=== PATIENT | female | born 1985 | race Caucasian/White ===

== ENCOUNTER 2019-12-02 07:38 | Inpatient (IN) ==
[2019-12-02] MEDS ORDERED: OXYTOCIN 30 UNITS/500 ML BAG IV PRN ×5 (08:16→18:00)
[2019-12-02] MEDS ORDERED: PENICILLIN G POTASSIUM 6 MU in DEXTROSE 5% 250 ML IV STA (08:19)
[2019-12-02] MEDS ORDERED: LACTATED RINGER'S 1,000 ML IV PRN (08:19)
[2019-12-02 08:38] LABS: Hematocrit (blood only) 40.7 % (37-47); Hemoglobin 13.5 g/dL (12.0-16.0); Mean Corpuscular Hemoglobin 30.5 pg (25-34); Mean Corpuscular Volume 92.1 fL (80-100); Mean Platelet Volume 11.6 fL (7.4-10.4); Platelet Count 162 K/uL (130-400); RDW Coefficient of Variation 12.9 % (11.5-14.5); RDW Standard Deviation 43.2 fL (36.4-46.3); Red Blood Count 4.42 M/uL (4.2-5.4); White Blood Count 9.71 K/uL (4.8-10.8)
[2019-12-02 08:39] LABS: Mean Corpuscular Hgb Conc 33.2 g/dL (32-36)
[2019-12-02] MEDS: LACTATED RINGER'S 1,000 ML IV PRN ×3 (08:51→16:39)
[2019-12-02] MEDS: PENICILLIN G POTASSIUM 3 MU in DEXTROSE 5% 100 ML IV PRN ×2 (12:36→16:39)
[2019-12-02] MEDS ORDERED: ePHEDrine sulfate 50 MG/ML AMP ONE (13:32)
[2019-12-02] MEDS ORDERED: fentaNYL citrate 100 MCG/2 ML VIAL ONE (13:33)
[2019-12-02] MEDS ORDERED: fentaNYL 2MCG/ML ROPIV 1.25MG/ML 100 ML BAG EPI ONE (13:33)
[2019-12-02] MEDS ORDERED: BUPIVACAINE 0.25% 30 ML VIAL ONE (13:33)
--- NOTE | 2019-12-02 13:50 | Anesthesiology Consultation ---
Date of Service December 02, 2019 Assessment & Plan (1) Encounter for pre-operative examination: Chart Review Chart Review: Acceptable Risk for Labor Epidural Consults Requested none ASA ASA2 Proposed Anesthesia Anesthesia Type: Labor Epidural Risk / Benefits Reviewed With: PT / POA / Parent / Guardian, Accepts Plan and Informed Consent Obtained History Height/Weight Height: 5 ft 3 in Weight: 96.162 kg Allergies Allergy/AdvReac Type Severity Reaction Status Date / Time No Known Allergies Allergy Unverified 12/02/19 07:46 Medications Home Medications Medication Instructions Recorded Confirmed Last Taken cholecalciferol (vitamin D3) 50 mcg PO DAILY 12/02/19 12/02/19 12/01/19 [Vitamin D3] vit no.[id number] 1 tab PO DAILY 12/02/19 12/02/19 12/01/19 [ Vitamin] Active Medications Generic Name Dose Route Start Last Admin Trade Name Freq PRN Reason Stop Dose Admin Lactated Ringer's 1,000 mls @ 125 mls/hr 12/02/19 08:16 12/02/19 13:45 Lr IV 12/04/19 08:15 999 mls/hr .Q8H PRN Administration L&D Protocol Protocol Penicillin G Potassium 3 mu/ 106 mls @ 100 mls/hr 12/02/19 08:19 12/02/19 13:45 Dextrose IV 12/12/19 08:18 Infused Q4H PRN Infusion Give until delivery Oxytocin 30 units in 500 mls @ 16 mls/hr 12/02/19 08:19 12/02/19 13:19 Pitocin IV 12/04/19 08:18 0.96 units/hr .Q24H PRN 16 mls/hr Labor Induction/Augmentation Titration Protocol 0.96 UNITS/HR Past Medical History Medical History (spontaneous vaginal delivery) 2011,2013,2015 Exercise / Class Metabolic Activity II 4-5 Yardwork/Stairs/Walk up hill Past Surgical History Surgical History [place] teeth extracted Past Anesthesia History No Hx of Anesthesia Complications and No Family Hx of Anesthesia Complications History of PONV No Hx of PONV and No Hx of Motion Sickness Social History Smoking Status: Never smoker Hx Alcohol Use: No Hx Substance Use: No Physical Exam Vital Signs Last Vital Signs Temp 98.1 F 12/02/19 11:00 Pulse 78 12/02/19 13:43 Resp 20 12/02/19 13:00 BP 121/70 12/02/19 12:04 Pulse Ox 100 12/02/19 13:43 ENMT Mouth: no dentition abnormality Thyromental Distance: > or= 3.5 Finger Breadths Mallampati Class: II Neck normal visual inspection Respiratory normal respiratory effort Auscultation: lungs clear to auscultation bilaterally Cardiovascular Rate/Rhythm: regular rate and regular rhythm Testing Laboratory Results 12/02/19 08:28
[2019-12-02] MEDS ORDERED: fentaNYL 2MCG/ML ROPIV 1.25MG/ML 100 ML BAG EPI PRN (14:09)
[2019-12-02] MEDS ORDERED: NALOXONE HCL 1 MG in SODIUM CHLORIDE 0.9% 1000ML 1,000 ML IV PRN (14:09)
[2019-12-02] MEDS ORDERED: NALOXONE HCL 0.4 MG/1 ML VIAL/CARP IV PRN (14:09)
[2019-12-02] MEDS ORDERED: ONDANSETRON INJ 2 MG/ML 2 ML VIAL IV PRN (14:09)
[2019-12-02] MEDS ORDERED: DiphenhydrAMINE HCL 50 MG/ML VIAL IV PRN (14:09)
[2019-12-02] MEDS ORDERED: ePHEDrine sulfate 50 MG/ML AMP IV PRN (14:09)
--- NOTE | 2019-12-02 15:14 | Obstetrical Progress Note ---
Date of Service December 02, 2019 Assessment & Plan Admission and Anticipated Discharge Date Admission Date: December 02, 2019 Subjective Pt doing well FHR CAT1 CTx 2-3mins Pit; 16Mu VE; 3/50/-2 AROM- clear anticipate VD Results & Data ([facility]) Vital Signs (Past 12 Hours) Vital Signs Temp Pulse Resp BP Pulse Ox 12/02/19 15:11 80 122/77 12/02/19 15:08 94 H 98 12/02/19 15:03 71 98 12/02/19 15:02 76 115/69 12/02/19 14:58 76 98 12/02/19 14:53 78 98 12/02/19 14:50 68 122/69 12/02/19 14:48 77 99 12/02/19 14:43 69 98 12/02/19 14:41 61 123/65 12/02/19 14:38 68 98 12/02/19 14:33 61 99 12/02/19 14:32 63 127/66 12/02/19 14:28 74 98 12/02/19 14:23 70 99 12/02/19 14:20 68 125/67 12/02/19 14:18 71 126/66 98 12/02/19 14:16 75 123/63 12/02/19 14:14 75 122/64 12/02/19 14:13 74 97 12/02/19 14:12 74 119/60 12/02/19 14:10 74 125/74 12/02/19 14:08 71 97 12/02/19 14:07 67 120/66 12/02/19 14:03 72 113/68 98 12/02/19 13:58 77 99 12/02/19 13:53 76 100 12/02/19 13:48 85 99 12/02/19 13:43 78 100 12/02/19 13:00 20 12/02/19 12:04 71 121/70 12/02/19 12:00 18 12/02/19 11:09 68 126/65 12/02/19 11:00 36.7 C 18 12/02/19 10:06 75 125/75 12/02/19 10:00 18 12/02/19 09:09 81 121/76 12/02/19 09:00 16 12/02/19 07:55 87 120/76 12/02/19 07:52 36.7 C 18
[2019-12-02] MEDS ORDERED: METHYLERGONOVINE MALEATE 0.2 MG/ML AMP ONE (17:47)
[2019-12-02] MEDS ORDERED: miSOPROStoL 200 MCG TAB ONE (17:48)
[2019-12-02] MEDS ORDERED: DIPHTHERIA/TETANUS/PERTUSSIS 0.5 ML SYR/VIAL IM ONE (18:00)
[2019-12-02] MEDS ORDERED: ACETAMINOPHEN 325 MG TAB PO PRN (18:00)
[2019-12-02] MEDS ORDERED: BENZOCAINE 20% AER SPR 82.5 GM CAN EXT PRN (18:00)
[2019-12-02] MEDS ORDERED: HYDROCORTISONE ACETATE 25 MG SUPP PR PRN (18:00)
[2019-12-02] MEDS ORDERED: miSOPROStoL 200 MCG TAB PR ONE (18:00)
[2019-12-02] MEDS ORDERED: METHYLERGONOVINE MALEATE 0.2 MG/ML AMP IM ONE (18:00)
[2019-12-02] MEDS ORDERED: IBUPROFEN 600 MG TAB PO PRN (18:00)
[2019-12-02] MEDS ORDERED: SUPERCREAM 0.870% 15 GM JAR EXT PRN (18:00)
[2019-12-02] MEDS ORDERED: bisacodyL 10 MG SUPP PR PRN (18:00)
--- NOTE | 2019-12-02 19:11 | Anesthesia Procedure Note ---
Date of Service December 02, 2019 Anesthesia Post Epidural Note Vital Signs Vital Signs: Temp Pulse Resp BP Pulse Ox 98.2 F 79 18 138/90 99 12/02/19 16:59 12/02/19 18:51 12/02/19 18:40 12/02/19 18:51 12/02/19 17:38 Pain Intensity Abdomen: Pain Intensity: 0 Notes Mental Status: alert / awake / arousable and participated in evaluation Nausea / Vomiting: adequately controlled Pain: adequately controlled Airway Patency, RR, SpO2: stable & adequate BP & HR: stable & adequate Hydration State: stable & adequate Neuraxial Anesthesia: was administered and sensory block is resolving Anesthetic Complications: no major complications apparent and Pt Satisfied with anesthetic care Epidural: Removed without complications and With tip intact
[2019-12-02] MEDS: DOCUSATE SODIUM 100 MG CAP PO SCH (21:26)
--- NOTE | 2019-12-03 00:35 | Delivery Summary ---
DATE OF OPERATION: 12/02/2019 DELIVERY NOTE The patient delivered a live male, left occiput anterior presentation with right hand compound presentation. Infant was delivered. Cord was clamped and cut after 1 minute. Weight and Apgars in the pediatric record. Cord blood was obtained. Placenta spontaneously delivered. Inspection of the placenta shows grossly normal looking placenta with 3-vessel cord. Estimated blood loss is 550 mL. Inspection of the perineum shows a first degree laceration, which was repaired with Vicryl. Rectal exam post repair showed good sphincter tone. All instruments were removed from the vagina including sponges, needles and retractors. The patient and mother stable to recovery. I attest to the content of the Intraoperative Record and any orders documented therein. Any exception s are noted below.
[2019-12-03 06:26] LABS: Hematocrit (blood only) 38.8 % (37-47); Hemoglobin 13.5 g/dL (12.0-16.0); Mean Corpuscular Hemoglobin 31.6 pg (25-34); Mean Corpuscular Hgb Conc 34.8 g/dL (32-36); Mean Corpuscular Volume 90.9 fL (80-100); Mean Platelet Volume 11.5 fL (7.4-10.4); Platelet Count 151 K/uL (130-400); RDW Coefficient of Variation 12.6 % (11.5-14.5); RDW Standard Deviation 41.4 fL (36.4-46.3); Red Blood Count 4.27 M/uL (4.2-5.4); White Blood Count 11.86 K/uL (4.8-10.8)
[2019-12-03] MEDS ORDERED: PRENATAL VITAMIN 1 TAB PO SCH (08:00)
--- NOTE | 2019-12-03 08:05 | Obstetrical Progress Note ---
Date of Service December 03, 2019 Assessment & Plan Admission and Anticipated Discharge Date Admission Date: December 02, 2019 Subjective Patient is seen and examined. She feels well, no complaints. Desires d/c tonight Ambulating without dizziness Voiding without difficulty Tolerating regular diet with out N&V Bleeding is minimal No fever/ chills/ CP/ SOB/ N&V/ Leg pain Breast feeding without problems Vital Signs Temp Pulse Resp BP Pulse Ox 12/03/19 03:50 36.7 C 70 18 112/71 96 12/02/19 23:45 36.8 C 76 20 127/76 96 12/02/19 20:15 36.7 C 71 20 130/76 98 Lab Results 12/02/19 12/03/19 Range/Units 08:28 06:13 WBC 9.71 11.86 H (4.8-10.8) K/uL RBC 4.42 4.27 (4.2-5.4) M/uL Hgb 13.5 13.5 (12.0-16.0) g/dL Hct 40.7 38.8 (37-47) % MCV 92.1 90.9 (80-100) fL MCH 30.5 31.6 (25-34) pg MCHC 33.2 34.8 (32-36) g/dL RDW Std Deviation 43.2 41.4 (36.4-46.3) fL RDW Coeff of Rosalina 12.9 12.6 (11.5-14.5) % Plt Count 162 151 (130-400) K/uL MPV 11.6 H 11.5 H (7.4-10.4) fL PE: General: Alert, orientedx3, NAD Abd: soft, NT, fundus firm, below Umbilicus Perineum intact, Lochia rubra minimal Ext; NT, no edema AP: 34 yo s/p , ppd# 1 VSS Afebrile doing well Continue routine care All questions were answered Discussed when to call D/C home after 24 hours Results & Data ([facility]) Vital Signs (Past 12 Hours) Vital Signs Temp Pulse Resp BP Pulse Ox 12/03/19 03:50 36.7 C 70 18 112/71 96 12/02/19 23:45 36.8 C 76 20 127/76 96 12/02/19 20:15 36.7 C 71 20 130/76 98
[2019-12-03] MEDS: DOCUSATE SODIUM 100 MG CAP PO SCH (08:20)
[2019-12-03] MEDS ORDERED: bisacodyL 5 MG TABEC PO SCH (20:00)
--- NOTE | 2019-12-28 08:04 | Coding Query ---
CODING QUERY To promote full compliance with coding requirements relating to patient care, provider participation is requested in all cases of lsat instructor uncertainty. Please assist us with the question(s) below: Coding Question(s): Dr. Marcum, Please clarify the patient's GBS status and appropriate treatment, as well as the weeks of gestation at the time of admission. This information is located in the scanned H&P, but cannot be abstracted without current documentation from the physician as the H&P is not signed and has not been reviewed. ( ) GBS positive with adequate treatment ( ) GBS positive with inadequate treatment ( ) GBS negative ( ) GBS status unknown or undetermined WEEKS GESTATION AT TIME OF ADMISSION: ( ) 42 weeks ( ) 41 weeks ( ) 40 weeks ( ) 39 weeks ( ) 38 weeks ( ) other, please explain: Physician's Response(s): Thank you for your time, YIFAN Rice, PRINTING WORKER SUPERVISOR Principal Diagnosis: "that condition established after study, to be chiefly responsible for occasioning the admission of the patient to the hospital for care." Co-Existing Principal Diagnosis: "when two or more diagnoses equally meet the criteria for principal diagnosis as determined by the circumstances of admission, diagnostic work up, and/or therapy provided, and the Alphabetic Index, Tabular List, or another coding guideline does not provide sequencing direction, any one of the diagnoses may be sequenced first." "When the physician has documented what appears to be a current diagnosis in the body of the record, but has not included the diagnosis in the final diagnostic statement, the physician should be asked whether the diagnosis should be added." (Source [facility] 2 QTR90. p3-4) LEXY
== END 2019-12-03 18:35 | disposition home or self-care (01) | DRG 807 ==
LOC: 4S1 07:38 → 4S2 20:12